=== PATIENT | female | born 1975 | race Caucasian/White ===

== ENCOUNTER → 2020-07-16 | Outpatient (CLI) | payer BC, OTHER ==
[~2020-07-16] MED LIST: ALDACTONE50 MG PO; CLARITIN10 MG PO; DOXYCYCLINE 10100 MG PO; MULTI-VITAMIN1 CTB PO; PRILOSEC 20MG20 MG PO; SINGULAIR10 MG PO; WELLBUTRIN XL150 MG PO; [UNRECOGNIZED DRUG - OTHER] PO
== END ==
LOC: MC.RAD 07-06 10:30
DX: Z12.31 Encounter for screening mammogram for malignant neoplasm of breast (principal)

== ENCOUNTER → 2022-08-19 | Outpatient (CLI) | payer BC | LOC: MC.RAD 08:28 | DX: Z12.31 Encounter for screening mammogram for malignant neoplasm of breast (principal) ==

== ENCOUNTER → 2023-10-21 | Outpatient (CLI) | payer BC | LOC: MC.RAD 09:24 | DX: Z12.31 Encounter for screening mammogram for malignant neoplasm of breast (principal) ==

== ENCOUNTER 2023-10-27 06:25 | Day surgery (SDC) | payer BC ==
[~2023-10-27] VITALS: Ht 162.6 cm; Wt 66.4 kg
[~2023-10-27 06:25] MED LIST changes: +LR 1,000 ML IV SCH; +Ondansetron 4 MG/2 ML VIAL IV PRN
[2023-10-27] MEDS ORDERED: NEXIUM 40MG40 MG PO (07:09)
[2023-10-27] MEDS ORDERED: WELLBUTRIN XL300 M1 PO (07:10)
[2023-10-27] MEDS ORDERED: ALDACTONE 100M100 MG PO (07:11)
[2023-10-27] MEDS ORDERED: SUDAFED30 MG PO (07:11)
[2023-10-27] MEDS ORDERED: CLARITIN 1010 MG/TAB PO (07:11)
[2023-10-27] MEDS ORDERED: SENOKOT S 50 MG1 TAB PO (07:12)
[2023-10-27] MEDS ORDERED: GLUCOPHAGE500 MG/TAB PO (07:13)
[2023-10-27] MEDS ORDERED: DESYREL 50MG50 MG PO (07:13)
[2023-10-27] MEDS ORDERED: MIRENA52 MG IY (07:14)
[2023-10-27] MEDS ORDERED: WEGOVY0.5 MG/0.5 SQ (07:14)
[2023-10-27] MEDS ORDERED: Lidocaine PF 2% (20 MG/ML) 5 ML VIAL ONE (07:47)
[2023-10-27 08:40] VITALS: BP 108/81; PULSE 71; TEMP 97.5
[2023-10-27 09:00] VITALS: BP 115/85; PULSE 66
[2023-10-27 10:00] VITALS: BP 109/86; PULSE 76; TEMP 97.3
--- NOTE | 2023-10-27 10:21 | NUR ---
0840- PT RETURNS FROM ENDO PROCEDURE VIA CART AND RN ASSIST TO GI [facility] 1. PT AMBULATES FROM CART TO RECLINER WITH ASSIST. MONITORS ON AND ALARMS SET. CALL LIGHT WITHIN REACH. REPORT RECEIVED FROM TANYA LANDRY. PT ALERT AND ORIENTED. PT REQUESTS FOOD AND DRINK. PT DENIES ANY PAIN OF NAUSEA. 0900- PT TAKING FOOD AND DRINK WELL. NO COMPLICATIONS NOTED. 0940- DISCHARGE INSTRUCTIONS GIVEN TO PT. ALL QUESTIONS ANSWERED. 0950- PT TRANSFERRED OUT OF THE HOSPITAL VIA WHEELCHAIR AND ASSIST TO PRIVATE VEHICLE DRIVEN BY MOM.
== END 2023-10-27 09:50 | disposition home or self-care (01) ==
LOC: SDCO 06:25
DX: K51.40 Inflammatory polyps of colon without complications (principal); D12.5 Benign neoplasm of sigmoid colon; K21.9 Gastro-esophageal reflux disease without esophagitis; K59.09 Other constipation; Z79.899 Other long term (current) drug therapy; Z87.891 Personal history of nicotine dependence; Z80.0 Family history of malignant neoplasm of digestive organs
CPT/HCPCS: J2704; J7120

== ENCOUNTER 2024-03-02 10:59 | Day surgery (SDC) | payer BC ==
[2024-03-02] VITALS (14 sets, daily range): BP systolic 108–119; BP diastolic 65–72; PULSE 71–89; TEMP 97.5–98.2
[~2024-03-02] VITALS: Ht 162.6 cm; Wt 68.2 kg
[~2024-03-02 10:59] MED LIST changes: +ALDACTONE 100M100 MG PO; +CLARITIN 1010 MG/TAB PO; +COMPLETE MULTI1 TAB PO; +DESYREL 50MG50 MG PO; +Famotidine 20 MG TAB PO SCH; +GLUCOPHAGE XR500 M1 PO; +MIRENA52 MG IY; +Meclizine 25 MG TAB PO SCH; +NEXIUM 40MG40 MG PO; -Ondansetron 4 MG/2 ML VIAL IV PRN; +SENOKOT S 50 MG1 TAB PO; +SUDAFED30 MG PO; +WEGOVY0.5 MG/0.5 SQ; +WELLBUTRIN XL300 M1 PO; -[UNRECOGNIZED DRUG - OTHER] PO
[2024-03-02] MEDS ORDERED: PROBIOTIC 2 BI1 EACH PO (11:53)
[2024-03-02] MEDS ORDERED: MIRALAX119G PO (11:57)
[2024-03-02] MEDS ORDERED: NASACORT OTC NS (11:58)
--- NOTE | 2024-03-02 11:59 | NUR ---
The patient ambulated back to [place] [facility] independently using a steady gait and appeared to tolerate the activity well. Vital signs obtained. Consent signed. 18G IV started in left hand with one stick, LR infusing without difficulty. Assessment completed. Home medications reconcilled. Mother at bedside. Warm blanket provided. The patient denies any further needs at this time.
[2024-03-02] MEDS ORDERED: fentaNYL 50 MCG/ML 5 ML VIAL ONE (12:00)
[2024-03-02] MEDS ORDERED: dexAMETHasone 10 MG/ML VIAL ONE (12:00)
[2024-03-02] MEDS ORDERED: Ondansetron 4 MG/2 ML VIAL ONE (12:00)
[2024-03-02] MEDS ORDERED: Lidocaine PF 2% (20 MG/ML) 5 ML VIAL ONE (12:00)
[2024-03-02] MEDS ORDERED: Rocuronium 50 MG/5 ML Multi-Dose VIAL ONE ×2 (12:01→13:31)
[2024-03-02] MEDS ORDERED: fentaNYL 50 MCG/ML 2 ML VIAL ONE (14:02)
[2024-03-02] MEDS ORDERED: Ketorolac 30 MG/ML VIAL ONE (14:07)
[2024-03-02] MEDS ORDERED: HYDROmorphone 1 MG/1 ML SYRINGE [PACU/SDC ONLY] IV PRN (14:15)
[2024-03-02] MEDS ORDERED: fentaNYL 50 MCG/ML 1 ML SYRINGE/VIAL [PACU/SDC ONLY] IV PRN (14:15)
[2024-03-02] MEDS ORDERED: Meperidine 50 MG/ML 1 ML VIAL IV PRN (14:15)
[2024-03-02] MEDS ORDERED: hydrALAZINE 20 MG/ML 1 ML VIAL IV PRN (14:15)
[2024-03-02] MEDS ORDERED: droPERidol 2.5 MG/ML 2 ML VIAL IV PRN (14:15)
[2024-03-02] MEDS ORDERED: Ondansetron 4 MG/2 ML VIAL IV PRN ×2 (14:15→14:30)
[2024-03-02] MEDS ORDERED: ROXICODONE 55 MG/TAB PO (14:28)
[2024-03-02] MEDS ORDERED: oxyCODONE 5 MG TAB PO PRN (14:30)
[2024-03-02] MEDS ORDERED: HYDROmorphone 0.5 MG/0.5 ML SYRINGE IV PRN (14:30)
[2024-03-02] MEDS ORDERED: Polyethylene Glycol 3350 17 GM PDS PO PRN (14:30)
[2024-03-02] MEDS ORDERED: Naloxone 0.4 MG/ML VIAL IV PRN (14:30)
[2024-03-02] MEDS ORDERED: Acetaminophen 500 MG TAB PO SCH (15:21)
--- NOTE | 2024-03-02 15:28 | NUR ---
PATIENT ARRIVED TO FLOOR AT 1525 FROM PACU. 6 INCISION SITES W/ BANDAIDS CDI.VSS. PATIENT HAS MOTHER AT BEDSIDE STATES GAS PAINS IN CHEST AND LEFT COLLARBONE AREA. WARM COMPRESSTO ABD AND CHEST/LEFT SHOULDER. PATIENT STATES NO OTHER NEEDS AT THIS TIME. CALL LIGHT IN REACH.
--- NOTE | 2024-03-02 19:19 | NUR ---
BEDSIDE SHIFT REPORT RECIEVED AT THIS TIME.
--- NOTE | 2024-03-02 19:57 | NUR ---
SHIFT ASSESSMENT COMPLETED AT THIS TIME. PT A&OX4. PT RESTING IN BED UPON ENTRANCE. PT REPORTS 6/10 GAS PAIN LOCATED BELOW THE LEFT COLLARBONE AND ABDOMEN. PT ENCOURAGED TO WALK. PT REQUESTED KPAD. NEW ORDERS RECIEVED VIA PHONE FROM DR. SANTIAGO. INT TO LEFT HAND. PT HAS 6 LAP SITES COVERED WITH BANDAIDS TO THE ABDOMEN. ALL CLEAN, DRY AND INTACT. PT DENIES NAUSEA, CHEST PAIN AND SOB AT THIS TIME. , MOTHER AND DAUGHTER AT BEDSIDE. PT DENIES PAIN MEDICATION AT THIS TIME. CALL LIGHT WITHIN REACH. PT HAS NO FURTHER NEEDS AT THIS TIME.
[2024-03-02] MEDS ORDERED: traZODone 50 MG TAB PO SCH (21:00)
[2024-03-02] MEDS ORDERED: Esomeprazole 40 MG **** subs to Pantoprazole 40 MG PO SCH (21:00)
[2024-03-03] VITALS (7 sets, daily range): BP systolic 93–109; BP diastolic 58–69; PULSE 67–75; TEMP 98.1–98.4
--- NOTE | 2024-03-03 00:24 | NUR ---
report received from Leah FREY. pt awake resting comfortably in bed. pt denies needs at this time. call light in reach.
--- NOTE | 2024-03-03 08:59 | NUR ---
SW met with patient to complete initial assessment for discharge planning. Patient verified that she lives in [place] with her Mary ([phone]) and two daughters. Patient also lists her mother Graciela Kiser ([phone]) as contact. Patient sees Dr. Mak Cespedes as her PCP and uses [facility] in [place] without difficulty. Patient denies having any DME or having DPOA. She does ask to complete DPOA prior to discharge. Patient plans to return home. Discharge plan: Home
[2024-03-03] MEDS ORDERED: Spironolactone 25 MG TAB PO SCH (09:00)
[2024-03-03] MEDS ORDERED: Loratadine 10 MG TAB PO SCH (09:00)
[2024-03-03] MEDS ORDERED: buPROPion XL (24-HR) 150 MG TAB PO SCH (09:00)
[2024-03-03] MEDS ORDERED: Sennosides/Docusate 8.6-50 MG TAB PO SCH (09:00)
--- NOTE | 2024-03-03 10:42 | NUR ---
SHIFT ASSESSMENT COMPLETED. VSS. PATIENT RESTING BED EATING BREAKFAST. MOTHER AT BEDSIDE. PATIENT HAS BEEN AMBULATING DIRECTED AND HAS PASSED GAS IN THE PM ON 03/02 NOTHING THIS AM YET. ALL MORNING MEDS GIVEN ORDERED, PATIENT REFUSED HER SPIRONTACTONE AND CLARITIN DUE TO NOT WANTING TO UPSET OR STOMACH. PATIENT HAS NO OTHER REQUEST OR NEEDS AT THIS TIME. CALL LIGHT IN REACH
--- NOTE | 2024-03-03 15:21 | NUR ---
D: Medical Supervisor stopped by room on rounds. A: Pt was resting and content with mother in the room. Pt and family from [place]. 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 No needs right now. P: Medical Supervisor informed pt that if she needed anything from the sales negotiator area to let her nurse know. Medical Supervisor will follow up as needed.
== END 2024-03-03 17:15 | disposition home or self-care (01) ==
LOC: SDCO 10:59 → SURG 10:59 → SDCO 13:00 → SURG 15:25 → SDCO 03-03 17:15
DX: K21.9 Gastro-esophageal reflux disease without esophagitis (principal); K66.0 Peritoneal adhesions (postprocedural) (postinfection); K44.9 Diaphragmatic hernia without obstruction or gangrene; Z79.899 Other long term (current) drug therapy; Z98.890 Other specified postprocedural states; Z80.0 Family history of malignant neoplasm of digestive organs
CPT/HCPCS: OP; J1100; J1885; J2405; J2704; J3010; J7120